=== PATIENT | male | born 1945 | race Caucasian/White ===

== ENCOUNTER 2016-10-18 12:38 | Emergency (ER) | payer OTHER, BC ==
[2016-10-18 12:46] VITALS: TEMP 97.7; BMI 23.6
--- NOTE | 2016-10-18 14:32 | PDOC ---
History of Present Illness - General History Source: Patient Exam Limitations: No Limitations - History of Present Illness Initial Comments: 10/18/16 14:45 The patient is a 71-year-old man, accompanied by spouse, with a significant past medical history of hyperchoelsterolemia, myocardial infarction status post cardiac stent placement (2011) and gastroesophageal reflux disease who presents to the emergency department for further evaluation of lightheadedness today. As per patient, he admits he hydrated well enough to run a 10K race. Upon arriving home, the patient admits to drinking approximately 10-12 ounces of wine and a pint of scotch. Patient woke up this morning, went to taoism and during mass, he felt lightheaded and generally weak to the point where he had to sit down, as he feared he might've loss consciousness. He admits he has not been drinking enough water. He also admits he forgot to take his Metropolol medication twice ( last night and the day before). Patient states that his current symptoms are similar to when he experienced an FL in 2012. Patient also recalls that his symptoms occurred after running a marathon. Patient ultimately presents to the ED for further evaluation. No fever, chills, chest pain, cough, shortness of breath, back pain, palpitations, LOC, abdominal pain, nausea, vomiting. Allergies: None Known Past Surgical History: Cardiac Stent placement ([address] [facility], [place] performed by Front End Engineer, Dr. Jack Siu). Left shoulder surgery. Social History: No tobacco, ETOH and recreational drug use. Primary Care Physician: Dr. Reynold Villar [phone] Front End Engineer: Dr. Lucía Richardson [phone] <Lisy Burgos - Last Filed: 10/18/16 16:09> <Kamilah Payne - Last Filed: 10/18/16 19:06> <Juliana Bourne - Last Filed: 10/19/16 10:28> - General Chief Complaint: Lightheaded Stated Complaint: LIGHTHEADED, WEAK Time Seen by Provider: 10/18/16 14:18 Past History <Lisy Burgos - Last Filed: 10/18/16 16:09> <Kamilah Payne - Last Filed: 10/18/16 19:06> - Past Medical History Anemia: No Asthma: No Cancer: No Cardiac Disorders: Yes (10/04/12 FL) CVA: No COPD: No CHF: No Dementia: No Diabetes: No GI Disorders: Yes (GERD) Disorders: No HTN: No Hypercholesterolemia: Yes Liver Disease: No Seizures: No Thyroid Disease: No - Surgical History Abdominal Surgery: No Appendectomy: No Cardiac Surgery: Yes (CARDIAC STENT 2011) Cholecystectomy: No Lung Surgery: No Neurologic Surgery: No Orthopedic Surgery: Yes (LEFT SHOULDER SURGERY) - Immunization History Immunization Up to Date: Yes - Psycho/Social/Smoking Cessation Hx Anxiety: No Suicidal Ideation: No Smoking Status: No Smoking History: Never smoked Have you smoked in the past 12 months: No Number of Cigarettes Smoked Daily: 0 Information on smoking cessation initiated: No Hx Alcohol Use: No Drug/Substance Use Hx: No Substance Use Type: Alcohol Hx Substance Use Treatment: No <Juliana Bourne - Last Filed: 10/19/16 10:28> - Past Medical History Allergies/Adverse Reactions: Allergies Allergy/AdvReac Type Severity Reaction Status Date / Time No Known Allergies Allergy Verified 10/18/16 12:42 Home Medications: Ambulatory Orders Atorvastatin Calcium 80 mg PO DAILY tablet 11/03/13 Silodosin [Rapaflo] 4 mg PO DAILY 11/23/13 Famotidine [Pepcid] 20 mg PO DAILY 09/23/15 Metoprolol Succinate [Toprol Xl -] 12.5 mg PO DAILY 09/23/15 Aspirin [ASA -] 325 mg PO DAILY 01/06/16 Review of Systems - Review of Systems Able to Perform ROS?: Yes Comments:: 10/18/16 14:46 GENERAL/CONSTITUTIONAL: Yes: +Generalized weakness. No fever or chills. HEAD, EYES, EARS, NOSE AND THROAT: No change in vision. No ear pain or discharge. No sore throat. CARDIOVASCULAR: No chest pain or shortness of breath. RESPIRATORY: No cough, wheezing, or hemoptysis. GASTROINTESTINAL: No nausea, vomiting, diarrhea or constipation. GENITOURINARY: No dysuria, frequency, or change in urination. MUSCULOSKELETAL: No joint or muscle swelling or pain. No neck or back pain. SKIN: No rash NEUROLOGIC: Yes: +Lightheadedness. No headache, vertigo, loss of consciousness. ENDOCRINE: No increased thirst. No abnormal weight change. HEMATOLOGIC/LYMPHATIC: No anemia, easy bleeding, or history of blood clots. ALLERGIC/IMMUNOLOGIC: No hives or skin allergy. <LorettaLisy - Last Filed: 10/18/16 16:09> *Physical Exam - Vital Signs Last Vital Signs Temp Pulse Resp BP Pulse Ox 97.7 F 58 L 18 138/71 100 10/18/16 12:42 10/18/16 12:42 10/18/16 12:42 10/18/16 12:42 10/18/16 12:42 - Physical Exam Comments: 10/18/16 14:46 GENERAL: Awake, alert, and fully oriented, in no acute distress HEAD: No signs of trauma EYES: PERRLA, EOMI, sclera anicteric, conjunctiva clear ENT: Auricles normal inspection, hearing grossly normal, nares patent, oropharynx clear without exudates. Moist mucosa NECK: Normal ROM, supple, no lymphadenopathy, JVD, or masses LUNGS: Breath sounds equal, clear to auscultation bilaterally. No wheezes, and no crackles HEART: Regular rate and rhythm, normal S1 and S2, no murmurs, rubs or gallops ABDOMEN: Soft, nontender, normoactive bowel sounds. No guarding, no rebound. No masses EXTREMITIES: Normal range of motion, no edema. No clubbing or cyanosis. No cords, erythema, or tenderness NEUROLOGICAL: Cranial nerves II through XII grossly intact. Normal speech. <Lisy Burgos - Last Filed: 10/18/16 16:09> - Vital Signs Last Vital Signs Temp Pulse Resp BP Pulse Ox 97.7 F 78 16 127/80 99 10/18/16 12:42 10/18/16 18:45 10/18/16 18:45 10/18/16 18:45 10/18/16 18:45 <Kamilah Payne - Last Filed: 10/18/16 19:06> - Vital Signs Last Vital Signs Temp Pulse Resp BP Pulse Ox 97.7 F 58 L 18 138/71 100 10/18/16 12:42 10/18/16 12:42 10/18/16 12:42 10/18/16 12:42 10/18/16 12:42 <Juliana Bourne - Last Filed: 10/19/16 10:28> ED Treatment Course - LABORATORY CBC & Chemistry Diagram: 10/18/16 14:37 10/18/16 14:37 - RADIOLOGY Radiograph Interpretation: 10/18/16 15:34 EXAM: RAD/CHEST X-RAY PORTABLE IMPRESSION: Since 11/23/2013, there are clear lungs, prominent mediastinum and sharp angles. The bones and soft tissues are intact. No acute pathology. No significant change. <Lisy Burgos - Last Filed: 10/18/16 16:09> - LABORATORY CBC & Chemistry Diagram: 10/18/16 14:37 10/18/16 14:37 - ADDITIONAL ORDERS Additional order review: Laboratory Results 10/18/16 10/18/16 10/18/16 18:25 14:37 14:37 INR Sodium 142 Potassium 3.8 Chloride 107 Carbon Dioxide 29 Anion Gap 6 L BUN 16 Creatinine 0.6 L Creat Clearance w eGFR > 60 Random Glucose 97 Calcium 8.2 L Total Bilirubin 0.7 AST 35 ALT 37 Alkaline Phosphatase 69 Creatine Kinase 156 D 201 D Creatine Kinase Index 2.2 CK-MB (CK-2) 4.5 H CK-MB (CK-2) Rel Index Cancelled Troponin I 0.02 0.02 Total Protein 6.2 L Albumin 3.8 10/18/16 14:37 INR 1.04 Sodium Potassium Chloride Carbon Dioxide Anion Gap BUN Creatinine Creat Clearance w eGFR Random Glucose Calcium Total Bilirubin AST ALT Alkaline Phosphatase Creatine Kinase Creatine Kinase Index CK-MB (CK-2) CK-MB (CK-2) Rel Index Troponin I Total Protein Albumin 10/18/16 14:37 RBC 4.43 MCV 94.6 MCHC 33.2 RDW 13.6 MPV 8.0 Neutrophils % 85.3 H D Lymphocytes % 9.8 D Monocytes % 3.2 L Eosinophils % 1.6 Basophils % 0.1 - Medications Given in the ED: ED Medications Discontinued Medications Generic Name Dose Route Start Last Admin Trade Name Freq PRN Reason Stop Dose Admin Aspirin 325 mg 10/18/16 15:13 10/18/16 15:37 Asa - PO 10/18/16 15:14 325 mg ONCE ONE Administration Atorvastatin Calcium 80 mg 10/18/16 15:14 10/18/16 15:37 Lipitor - PO 10/18/16 15:15 80 mg ONCE ONE Administration Sodium Chloride 1,000 mls @ 1,000 mls/hr 10/18/16 15:13 10/18/16 15:37 Normal Saline - IV 10/18/16 16:12 1,000 mls/hr ASDIR STA Administration <Kamilah Payen - Last Filed: 10/18/16 19:06> - LABORATORY CBC & Chemistry Diagram: 10/18/16 14:37 10/18/16 14:37 <Juliana Bourne - Last Filed: 10/19/16 10:28> Medical Decision Making - Medical Decision Making 10/18/16 16:02 A call was placed to patient's Front End Engineer, Dr. Lucía Richardson at [phone]. 10/18/16 16:09 Response by patient's Front End Engineer, Dr. Lucía Richardson. Case was discussed. <Lisy Burgos - Last Filed: 10/18/16 16:09> - Medical Decision Making 10/18/16 16:14 Case d/w Dr. Avelar via phone. Suspects dehydration, but suspicion for FL is low. Recommended IV hydration and second enzyme. Will cont to monitor. 10/18/16 17:[address] Payne. Awaiting second enzyme. If neg, will DC home with outpatient f/u. <Juliana Bourne - Last Filed: 10/19/16 10:28> *DC/Admit/Observation/Transfer - Attestations Scribe Attestion: 10/18/16 14:46 Documentation prepared by Lisy Burgos, acting as biomedical engineering professor for Juliana Bourne MD. <Lisy Burgos - Last Filed: 10/18/16 16:09> <Kamilah Payne - Last Filed: 10/18/16 19:06> - Discharge Dispostion Admit: No <Juliana Bourne - Last Filed: 10/19/16 10:28> Diagnosis at time of Disposition: Syncope, near - Discharge Dispostion Disposition: HOME Condition at time of disposition: Stable - Referrals Referrals: Tergis,Reynold C, MD [Primary Care Provider] - - Patient Instructions Printed Discharge Instructions: DI for Dehydration -- Adult
[2016-10-18 14:58] LABS: BASOPHIL 0.1 % (0-2.0); EOSINOPHIL 1.6 % (0-4.5); MCH 31.4 pg (25.7-33.7); MCHC 33.2 g/dl (32.0-35.9); MEAN CELL VOLUME 94.6 fl (80-96); NEUTROPHILS 85.3 % (42.8-82.8); PLATELET COUNT 148 K/MM3 (134-434); RDW 13.6 % (11.9-15.9); WHITE BLOOD COUNT 6.6 K/mm3 (4.0-10.0)
[2016-10-18 15:09] LABS: INR 1.04 (0.82-1.09); PROTHROMBIN TIME (PATIENT) 11.4 SEC (9.98-11.88)
[2016-10-18] MEDS ORDERED: ASPIRIN 325 MG TABLET PO ONE (15:13)
[2016-10-18] MEDS ORDERED: SODIUM CHLORIDE 1,000 ML IV STA (15:13)
[2016-10-18] MEDS ORDERED: ATORVASTATIN CA 80 MG TABLET (FP) PO ONE (15:14)
[2016-10-18] MEDS ORDERED: ATORVASTATIN CA 80 MG TABLET (FP) ONE (15:28)
[2016-10-18] MEDS ORDERED: ASPIRIN 325 MG TABLET ONE (15:28)
[2016-10-18 15:30] LABS: ALBUMIN 3.8 g/dl (3.4-5.0); ANION GAP 6 (8-16); BILIRUBIN,TOTAL 0.7 mg/dL (0.2-1.0); CALCIUM 8.2 mg/dL (8.5-10.1); CO2 29 mmol/L (21-32); CREATININE 0.6 mg/dL (0.7-1.3); GLUCOSE,RANDOM 97 mg/dL (74-106); SGPT/ALT 37 U/L (12-78); TOT PROT 6.2 g/dl (6.4-8.2)
[2016-10-18 15:32] LABS: ALK PHOS 69 U/L (45-117); TROPONIN I 0.02 ng/ml (0.00-0.05)
[2016-10-18 15:34] LABS: SGOT/AST 35 U/L (15-37)
[2016-10-18 18:57] LABS: TROPONIN I 0.02 ng/ml (0.00-0.05)
[2016-10-18 19:31] VITALS: BP 132/78; PULSE 70
--- NOTE | 2016-10-18 23:53 | EKG ---
Test Reason : Blood Pressure : / mmHG Vent. Rate : 057 BPM Atrial Rate : 057 BPM P-R Int : 146 ms QRS Dur : 100 ms QT Int : 448 ms P-R-T Axes : 037 067 038 degrees QTc Int : 436 ms SINUS BRADYCARDIA OTHERWISE NORMAL ECG WHEN COMPARED WITH ECG OF 06-JAN-2016 12:05, NO SIGNIFICANT CHANGE WAS FOUND Confirmed by BECKIE WILLIS MD ([id number]) on 10/18/2016 11:52:58 PM Referred By: Confirmed By:BECKIE WILLIS MD
== END 2016-10-18 19:32 | disposition home or self-care (01) ==
LOC: JER 12:38
PROC: 3E0337Z Introduction of Electrolytic and Water Balance Substance into Peripheral Vein, Percutaneous Approach (ICD-10-PCS; principal; 2016-10-18)
DX: R55 Syncope and collapse (principal); E86.0 Dehydration; I25.2 Old myocardial infarction; I10 Essential (primary) hypertension; Z95.5 Presence of coronary angioplasty implant and graft; E78.00 Pure hypercholesterolemia, unspecified
CPT/HCPCS: 36415; 71010-TC; 80053; 82550; 82553; 84484; 85025; 85610; 93005; 93010; 96360; 99284-25

== ENCOUNTER 2020-04-11 09:37 | Emergency (ER) | payer OTHER, BC ==
[2020-04-11 09:41] VITALS: BP 126/88; PULSE 63; TEMP 97.9; BMI 22.9
--- NOTE | 2020-04-11 10:27 | PDOC ---
History of Present Illness - General Chief Complaint: Injury Stated Complaint: BOIL Time Seen by Provider: 04/11/20 09:43 History Source: Patient Exam Limitations: No Limitations - History of Present Illness Initial Comments: 04/11/20 10:22 Patient is a 74-year-old male with a history of hypertension, CAD, DC, hyperlipidemia who presents to the ED with complaint of a right elbow injury that he sustained earlier this morning. He states he went for a run, tripped and landed on his right elbow. He was able to get up immediately and denies any pain at the time. He did not hit his head and denies any LOC. He states after he got home, he showered and noticed swelling to his right elbow. He still states he has no pain. He was concerned about the swelling so he came to the ED for evaluation. Past History - Medical History Allergies/Adverse Reactions: Allergies Allergy/AdvReac Type Severity Reaction Status Date / Time No Known Allergies Allergy Verified 04/11/20 09:41 Home Medications: Ambulatory Orders Atorvastatin Calcium 80 mg PO DAILY tablet 11/03/13 Silodosin [Rapaflo] 4 mg PO DAILY 11/23/13 Famotidine [Pepcid] 20 mg PO DAILY 09/23/15 Metoprolol Succinate [Toprol Xl -] 12.5 mg PO DAILY 09/23/15 Aspirin [ASA -] 325 mg PO DAILY 01/06/16 Anemia: No Asthma: No Cancer: No Cardiac Disorders: Yes (10/04/12 [place]) CVA: No COPD: No CHF: No Dementia: No Diabetes: No GI Disorders: Yes (GERD) Disorders: No HTN: No Hypercholesterolemia: Yes Liver Disease: No Seizures: No Thyroid Disease: No - Surgical History Abdominal Surgery: No Appendectomy: No Cardiac Surgery: Yes (CARDIAC STENT 2011) Cholecystectomy: No Lung Surgery: No Neurologic Surgery: No Orthopedic Surgery: Yes (LEFT SHOULDER SURGERY) - Immunization History Immunization Up to Date: Yes - Psycho-Social/Smoking History Smoking Status: No Smoking History: Never smoked Have you smoked in the past 12 months: No Number of Cigarettes Smoked Daily: 0 - Substance Abuse Hx (Audit-C & DAST Scrn) How often the patient has a drink containing alcohol: Never Score: In Men: 4 or > Positive; In Women: 3 or > Positive: 0 Screen Result (Pos requires Nsg. Audit-10AR): Negative Review of Systems - Review of Systems Comments:: 04/11/20 10:23 - Review of Systems Able to Perform ROS?: Yes Constitutional: No: Fever, Chills, Loss of Appetite, Night Sweats, Weakness HEENTM: No: Eye Pain, Vision changes, Ear Pain, Throat Pain, Throat Swelling, Mouth Pain, Difficulty Swallowing Respiratory: No: Cough, Shortness of Breath, Wheezing, Sputum Production Cardiac (ROS): No: Chest Pain, Chest Tightness, Palpitations, Irregular Heart Beat, Edema ABD/GI: No: Nausea, Vomiting, Abdominal Pain, Diarrhea : No Dysuria, No Hematuria, No Frequency, No Urgency Musculoskeletal: No: Muscle Pain, Back Pain, Joint Pain, Muscle Weakness, Neck Pain; positive: Right elbow swelling Integumentary: No: Lesions, Rash Neurological: No: Headache, Numbness, Tingling, Weakness, Speech Difficulties *Physical Exam - Vital Signs Last Vital Signs Temp Pulse Resp BP Pulse Ox 97.9 F 63 18 126/88 98 04/11/20 09:38 04/11/20 09:38 04/11/20 09:38 04/11/20 09:38 04/11/20 09:38 - Physical Exam 04/11/20 10:23 - Physical Exam General Appearance: Nourished, Appropriately Dressed, No Distress HEENT: EOMI, Normal Voice, Hearing Grossly Normal Neck: Supple, No Lymphadenopathy (R), No Lymphadenopathy (L), No Rigidity, No Decreased range of motion Respiratory/Chest: Lungs Clear, Normal Breath Sounds. No Respiratory Distress, No Accessory Muscle Use Cardiovascular: Regular Rhythm, Regular Rate, S1, S2 Musculoskeletal: Normal Inspection. No Decreased Range of Motion; right elbow with a large hematoma appreciated. There is no tenderness to palpation along any bony prominences. No tenderness to the radial head with pronation or supination. Sensation intact to the radial, median and ulnar nerve distributions. Patient able to move all fingers freely. Full ROM of the right elbow without pain. No crepitus. Radial brachial pulses palpable. Extremity: Normal Capillary Refill, Normal Inspection Integumentary: Normal Color, Dry. No Rash Neurologic: catheterization laboratory technician II-XII NML intact, Fully Oriented, Alert, Normal Mood/Affect, Normal Response ED Treatment Course - RADIOLOGY Radiology Studies Ordered: Category Date Time Status ELBOW-RIGHT [RAD] Stat Radiology 04/11/20 09:52 Taken Medical Decision Making - Medical Decision Making 04/11/20 10:24 Assessment: Patient is a 74-year-old male with a right traumatic olecranon burs itis. Plan: -Right elbow x-ray done in the ED and there is no evidence of an acute fracture to the olecranon, bilateral condyles, or radial head. -Right elbow has been wrapped with an Jovany bandage and patient has been given instructions on compression for treatment. Since he is on aspirin he should not be taking any NSAIDs. He has been advised to alternate ice and heat to help the bursitis resolved. -Referral to hand surgery has been given for further evaluation and treatment if the symptoms do not resolve. The patient understands and agrees with this treatment plan and he is stable for discharge. Discharge - Discharge Information Problems reviewed: Yes Clinical Impression/Diagnosis: Olecranon bursitis of right elbow Traumatic hematoma of right elbow Qualifiers: Encounter type: initial encounter Qualified Code(s): S50.01XA - Contusion of right elbow, initial encounter Condition: Stable Disposition: HOME - Follow up/Referral Referrals: Ramez Oliveira MD [Staff Physician] - 1 week - Patient Discharge Instructions Patient Printed Discharge Instructions: DI for Elbow Bursitis, DI for Hematoma (Bruise) Additional Instructions: Wear the Jovany bandage daily to help with compression to help resolve the hematoma. Alternate ice and heat, 3 times daily, for 20 minutes at a time to help with swelling and resolution of the hematoma. Be sure to do gentle elbow range of motion exercises to preserve your range of motion. Take Tylenol for any pain. Be sure to follow-up with your primary doctor within 1 to 2 days for repeat evaluation. If your symptoms persist, you may follow-up with orthopedics, referral given for a possible aspiration if the bursitis does not resolve on its own. - Post Discharge Activity
== END 2020-04-11 11:05 | disposition home or self-care (01) ==
LOC: JERFT 09:37
DX: S50.01XA Contusion of right elbow, initial encounter (principal); M70.21 Olecranon bursitis, right elbow; W19.XXXA Unspecified fall, initial encounter
CPT/HCPCS: 73070-TC-RT-FY; 99283-25

== ENCOUNTER 2023-09-16 07:49 | Day surgery (SDC) | payer OTHER, BC ==
[2023-09-13 15:18] VITALS: BMI 22.9
[2023-09-16 08:39] VITALS: RESP 16
[2023-09-16 09:39] VITALS: PULSE 54; TEMP 97.9
[2023-09-16 10:12] VITALS: BP 133/79
== END 2023-09-16 10:15 | disposition home or self-care (01) ==
LOC: FASU-ENDO 07:49
PROVIDERS: ATTEND Internal Medicine Gastroenterology
PROC: 0DBK8ZX Excision of Ascending Colon, Via Natural or Artificial Opening Endoscopic, Diagnostic (ICD-10-PCS; 2023-09-16)
PROC: 0DBL8ZX Excision of Transverse Colon, Via Natural or Artificial Opening Endoscopic, Diagnostic (ICD-10-PCS; 2023-09-16)
PROC: 0DBN8ZX Excision of Sigmoid Colon, Via Natural or Artificial Opening Endoscopic, Diagnostic (ICD-10-PCS; 2023-09-16)
PROC: 0DBM8ZX Excision of Descending Colon, Via Natural or Artificial Opening Endoscopic, Diagnostic (ICD-10-PCS; principal; 2023-09-16 08:53)
DX: Z12.11 Encounter for screening for malignant neoplasm of colon (principal); D12.3 Benign neoplasm of transverse colon; D12.4 Benign neoplasm of descending colon; K63.5 Polyp of colon; Z83.719 Family history of colon polyps, unspecified
CPT/HCPCS: 88305-TC